=== PATIENT | female | born 1955 | race Caucasian/White ===

== ENCOUNTER 2017-12-24 07:45 | Day surgery (SDC) | payer MEDICARE ==
[2017-12-23 16:59] LABS: HEMATOCRIT 42.9 % (36.0-48.0); HEMOGLOBIN 14.2 g/dL (12-16); MCH 29.6 pg (26.0-34.0); MCHC 33.1 g/dL (31.0-37.0); MCV 89.4 fL (80.0-100.0); MEAN PLATELET VOLUME 11.3 fL (7.4-10.4); RBC 4.8 10x6/uL (4.00-5.40); RDW 13.6 % (11.5-14.5); WBC 4.6 10x3/uL (4.8-10.8)
[2017-12-23 17:20] LABS: ANION GAP 14.2 mmol/L (8-16); CARBON DIOXIDE 26.3 mmol/L (21.0-32.0); CREATININE - SERUM 0.9 mg/dL (0.6-1.3); POTASSIUM - SERUM 3.5 mmol/L (3.5-5.1)
[~2017-12-24] VITALS: Ht 165.1 cm; Wt 81.2 kg
--- NOTE | ~2017-12-24 | OP ---
PATIENT NAME: RENATE CONNOR PHILIPPE MEDICAL RECORD: [id number] :57 LOCATION:D.[facility]ERLY [facility] ADMISSION DATE: SURGEON: EFRAIN MICHAELS MD DATE OF OPERATION: 12/24/2017 SURGEON: Efrain Michaels MD ANESTHESIA: General anesthesia by Elena Zimmer CRNA DIAGNOSIS: Female stress urinary incontinence post-hysterectomy. PROCEDURES: Cystoscopy and pubovaginal sling with mesh, [employer] Obtryx II graft. FINDINGS: On cystoscopy, single ureteral orifices bilaterally. No bladder tumors. No bladder injury. BLOOD LOSS: 230 mL. CLINICAL HISTORY: This is a 62-year-old female, A0, who is status post hysterectomy. She has a chief complaint of urinary incontinence for the past 2-3 years and it has been getting worse with time. She also has nocturia times 2-3 and some daytime urinary frequency. She leaks when she is standing, walking, climbing, lifting, coughing, and sneezing. She also leaks with sexual activity. She has tried the vaginal laser treatment which caused her $1800 and it did not help. She is using 2 pads a day to catch the incontinence. When she was examined, she had urethral hypermobility and stress urinary incontinence was present. Yobani test was positive. She has a minor degree of cystocele and rectocele, [place]-Walker grade I respectively. These do not need to be repaired. I had discussed with her the use of various different materials for the pubovaginal sling. These include biological grafts as well as polypropylene mesh. The pros and cons of each approach were discussed. She finally chose to go with polypropylene mesh. She is not allergic to any medications. She was given Ancef IV licensed bondsman to the OR. DESCRIPTION OF PROCEDURE: The patient was given induction of general anesthesia. She was then shaved, prepped, and placed in dorsal lithotomy position. A weighted speculum was placed down the posterior vaginal wall. A 16-Tajik Horn catheter was put into the bladder and put to bag drainage. Nylon #1 stay sutures were used to retract the labia majora. These were anchored to the medial thighs. The anterior vaginal wall was then infiltrated with Pitressin solution. Twenty units of Pitressin was dissolved in 100 mL of injectable saline. This solution was used for hydrodissection. A vertical midline incision was made over the urethra, about 1 cm in length. Dissection was then performed using Metzenbaum scissors. We moved laterally to get to the obturator membrane on each side. The pubocervical fascia on each side was also taken down. At this point, we landmarked for the insertion of the pubovaginal sling. The landmark is at the insertion of the adductor longus muscle on the descending pubic ramus. Where the muscle meets the descending pubic ramus, we placed a small pen perla using a marking pen. This was done on each side. A stab incision was then made. The helical trocars were then placed through the stab incision to go behind the descending pubic ramus and through the apex of the obturator membrane. Here, the ends of the graft were then attached to the tips of the needles and the needles were both withdrawn to result in transobturator passage of the pubovaginal sling. There is a tab on the middle OPERATIVE REPORT [id number] RENATE CONNOR of the graft to indicate the midpoint. This was placed under the mid urethra. At this point, the Horn catheter was removed and we performed cystoscopy using a 17-Tajik cystoscope. No bladder injury was seen during cystoscopy. The bladder was filled through the cystoscope. Once the bladder was completely full, we then removed the scope. By applying manual suprapubic pressure, we could see leakage of urine per the urethra. Gradually, we increased the tension on the sling. The midpoint tab was removed by cutting a suture on it. Once further suprapubic pressure elicited no further leakage, we had sufficient tension for continence. The clear plastic sheath material on either side of the graft arms was removed by cutting with stay suture. These were entirely removed. The graft arms were then cut where they exited the groin incisions. The groin incisions were closed with simple interrupted 4-0 Monocryl. The vaginal dissection space was irrigated out using saline. The vaginal incision was closed using running 4-0 Monocryl. We did insert the Horn catheter back in after cystoscopy and after graft tension had been set. At the end of the case, the Horn catheter was again removed. Vaginal packing consisting of Kerlix infiltrated with estrogen cream was placed in the vagina. This will be removed prior to her going home today. TRANSINT:[id number] Voice Confirmation ID: [id number] DOCUMENT ID: [id number] EFRAIN MICHAELS MD at 0830 CC: [id number] DICTATION DATE: 12/24/17 1214 [employer]OR VEHICLE ESCORT DRIVER: 12/24/17 1830 [facility] 12/24/17 [place] [id number] [place] [id number]
[~2017-12-24 07:45] MED LIST: ADIPEX-P37.5 MG PO; BISOPROLOL-HCT1 EAC1 PO; ESTRACE1 MG PO; LEVOTHYROXINE100 MCG PO; PROZAC20 MG PO; TOPAMAX50 MG PO
[2017-12-24] MEDS ORDERED: GLUCOSAMINE HC500 MG PO (08:25)
[2017-12-24 08:56] VITALS: BP 124/99; Ht 165.1 cm; Wt 81.2 kg
== END 2017-12-24 14:30 | disposition home or self-care (01) ==
LOC: D.OPS 07:45
PROVIDERS: Anesthesiology
DX: N39.3 Stress incontinence (female) (male) (principal)